=== PATIENT | female | born 1995 | race African-American/Black ===

== ENCOUNTER 2020-02-26 12:56 | Inpatient (IN) ==
[2020-02-26 14:00] LABS: Albumin 4.4 g/dL (3.5-5.7); Albumin/Globulin Ratio 1.5 (1.1-2.2); Bilirubin,Direct 0.1 mg/dL (0.0-0.2); Bilirubin,Indirect 0.2 mg/dL (0.0-1.0); Bilirubin,Total 0.3 mg/dL (0.3-1.0); Globulin 2.9 g/dL (2.4-3.5); Total Protein 7.3 g/dL (6.4-8.9)
[2020-02-26 14:21] LABS: Thyroid Stimulating Hormone 1.01 mcIU/mL (0.340-5.600)
[2020-02-26] MEDS ORDERED: Mag Hydrox/Al Hydrox/Simeth 30 ML UDC PO PRN (21:49)
[2020-02-26] MEDS ORDERED: Acetaminophen 325 MG TABLET PO PRN (21:49)
[2020-02-26] MEDS ORDERED: Haloperidol Lactate 5 MG/ML VIAL IM PRN (21:49)
[2020-02-26] MEDS ORDERED: *HR* LORazepam 1 MG TABLET PO PRN (21:49)
[2020-02-26] MEDS ORDERED: *HR* LORazepam 2 MG/ML VIAL IM PRN (21:49)
[2020-02-26] MEDS ORDERED: haloperidoL 5 MG TABLET PO PRN (21:49)
[2020-02-26] MEDS ORDERED: hydrOXYzine pamoate 25 MG CAPSULE PO PRN (21:49)
[2020-02-26] MEDS ORDERED: MOM Conc 10 ML UD.LIQ PO PRN (21:49)
[2020-02-27] MEDS: traZODone 50 MG TABLET PO PRN ×2 (00:36→20:54)
[2020-02-27] MEDS: Nicotine 2 MG GUM BC PRN ×2 (17:35→21:17)
[2020-02-27] MEDS ORDERED: lamoTRIgine 25 MG TABLET PO SCH (21:00)
[2020-02-28 08:40] VITALS: BP 111/79
[2020-02-28] MEDS: Nicotine 2 MG GUM BC PRN (08:41)
== END 2020-02-28 10:35 | disposition home or self-care (01) | DRG 753 ==
LOC: EMEROOARM 12:56 → 1ANU 21:16
PROVIDERS: ADMIT Psychiatry & Neurology Psychiatry; ATTEND Psychiatry & Neurology Psychiatry